=== PATIENT | female | born 1995 | race Caucasian/White ===

== ENCOUNTER 2017-01-13 22:15 | Emergency (ER) | payer BC, OTHER ==
[~2017-01-13] VITALS: Ht 177.8 cm; Wt 63.5 kg
[2017-01-13] MEDS ORDERED: HYDROMORPHONE 1 MG/1 ML DISP.SYRIN IV ONE (22:45)
[2017-01-13] MEDS ORDERED: IV NORMAL SALINE 1000 ML BAG IV ONE (22:45)
[2017-01-13] MEDS ORDERED: ONDANSETRON 4 MG/2 ML VIAL IV ONE (22:45)
[2017-01-13] MEDS ORDERED: HYDROMORPHONE 1 MG/1 ML DISP.SYRIN ONE (22:51)
[2017-01-13] MEDS ORDERED: ONDANSETRON 4 MG/2 ML VIAL ONE (22:52)
[2017-01-13 22:58] LABS: *BILIRUBIN,URIN NEGATIVE (NEGATIVE); *BLOOD, URINE 2+ (NEGATIVE); *CLARITY,URINE CLOUDY (CLEAR); *COLOR,URINE YELLOW (YELLOW); *KETONES,URINE NEGATIVE (NEGATIVE); *UROBILINOGEN,URINE 0.2 E.U./dl (NORMAL); LEUKOCYTE ESTERASE ,URINE 1+ (NEGATIVE); NITRITE, URINE POSITIVE (NEGATIVE); PH,URINE 5.5 (5.0-8.0); UGLUCOSE NEGATIVE (NEGATIVE)
[2017-01-13 23:03] LABS: BASOPHILS # (AUTO) 0.1 K/uL (0.0-8.0); BASOPHILS % (AUTO) 0.7 % (0.0-2.0); EOSINOPHILS # (AUTO) 0.4 K/uL (0.0-0.7); EOSINOPHILS % (AUTO) 4.5 % (0.0-7.0); HEMATOCRIT 39.6 % (37-47); HEMOGLOBIN 13.6 G/DL (12.0-16.0); LYMPHOCYTES # (AUTO) 3.2 K/UL (0.8-4.8); LYMPHOCYTES % (AUTO) 36.8 % (20.5-51.5); MEAN CORPUSCULAR HEMOGLOBIN 31.5 UUG (27.0-31.0); MEAN CORPUSCULAR HGB CONC 34 g/dL (32.0-37.0); MEAN CORPUSCULAR VOLUME 91.9 FL (81.0-99.0); MONOCYTES # (AUTO) 0.6 K/UL (0.1-1.30); MONOCYTES % (AUTO) 6.5 % (0.0-11.0); NEUTROPHILS # (AUTO) 4.3 K/UL (1.8-8.9); NEUTROPHILS % (AUTO) 51.5 % (38.5-71.5); PLATELET COUNT (AUTO) 310 K/UL (150-450); RED BLOOD CELL COUNT(AUTO) 4.31 MIL/UL (4.2-5.4); WHITE BLOOD COUNT (AUTO) 8.6 K/UL (4.0-11.2)
[2017-01-13 23:09] LABS: *PROTEIN,URINE 3+ (NEGATIVE)
[2017-01-13 23:11] LABS: BACTERIA,URINE MANY /HPF (NONE SEEN); BILIRUBIN,DIRECT 0.1 mg/dL (0.0-0.2); BILIRUBIN,TOTAL 0.2 mg/dL (0.2-1.0); CREATININE 0.8 mg/dL (0.6-1.3); POTASSIUM 3.4 mmol/L (3.5-5.1); RBC,URINE 20-50 /HPF (0-3); SQUAMOUS EPITHELIAL CELL,UR MODERATE /HPF (NONE SEEN); TOTAL PROTEIN, SERUM 7.8 g/dL (6.4-8.2); WBC,URINE TNTC /HPF (0-3)
[2017-01-13 23:12] LABS: *URINE HCG, QUAL NEGATIVE (NEGATIVE)
[2017-01-13] MEDS ORDERED: IV NORMAL SALINE 250 ML IV ONE (23:29)
[2017-01-13] MEDS ORDERED: IOHEXOL 300MG/ML 100 ML INFUS..BTL ONE (23:29)
[2017-01-13] MEDS ORDERED: NORMAL SALINE FLUSH 10 ML DISP.SYRIN ONE (23:29)
--- NOTE | 2017-01-13 23:40 | NUR ---
Patient's family at bedside contracticting ERMD's medical opinion and advising patient to refuse tests. ERMD notified, ERMD spoke with family.
--- NOTE | 2017-01-13 23:40 | NUR ---
Patient refuses CT scan
--- NOTE | 2017-01-13 23:41 | NUR ---
Radiology at bedside for US. Patient wishes to refuse any further tests.
[2017-01-13] MEDS ORDERED: NITROFURANTOIN/NITROFURAN MAC 100 MG CAPSULE PO ONE (23:45)
[2017-01-13] MEDS ORDERED: CEFTRIAXONE 1 G in IV DEXTROSE 5% 50 ML IV ONE (23:45)
[2017-01-13] MEDS ORDERED: CEFTRIAXONE 1 G VIAL ONE (23:54)
[2017-01-13] MEDS ORDERED: NITROFURANTOIN/NITROFURAN MAC 100 MG CAPSULE ONE (23:54)
--- NOTE | 2017-01-14 00:30 | NUR ---
Patient comfortable in bed during US examination. Family members refuse to leave the room despite multiple requests due to private nature of [facility] US. ERMD notified.
--- NOTE | 2017-01-14 00:44 | NUR ---
Radiology completed US, preliminary results to ERMD.
--- NOTE | 2017-01-14 00:46 | NUR ---
Patient decided to have the CT scan but states she does not want contrast. ERMD notified.
[2017-01-14] MEDS ORDERED: HYDROMORPHONE 1 MG/1 ML DISP.SYRIN IV ONE (01:00)
[2017-01-14] MEDS ORDERED: HYDROMORPHONE 1 MG/1 ML DISP.SYRIN ONE (01:18)
[2017-01-14] MEDS ORDERED: ONDANSETRON 4 MG/2 ML VIAL ONE (01:28)
[2017-01-14] MEDS ORDERED: ONDANSETRON IV *ER 4 MG/2 ML VIAL IV ONE (01:30)
--- NOTE | 2017-01-14 03:38 | NUR ---
NICK spoke with patient and family and informed them he recommends admission to the hospital due to patient's continuing pain. Patient and family members stated that they wanted to be discharged. When staff discussed AMA option, mother stated "she came in pain and she's leaving in pain." Mother was again informed that NICK recommends admission to the hospital. Patient and mother wish to be discharged.
--- NOTE | 2017-01-14 03:39 | NUR ---
Patient was presented with after care instructions. Patient's mother refused to let the patient see medical documents, demanded that she read every form, and ultimately took the signature page of the after care instructions stating "I'm not signing that." Patient was understanding of instructions and desired to be discharged.
--- NOTE | 2017-01-14 03:40 | NUR ---
Patient does not wish to proceed with medical care recommended by Dr. Dan. Patient given information related to possible complications, up to and including , which could occur as a result of leaving the hospital at this time. Patient verbalizes understanding of risks involved due to leaving against medical advice. Patient and her mother refused to sign AMA form.
== END 2017-01-14 03:51 | disposition left against medical advice (07) ==
LOC: ER 22:15
DX: N12 Tubulo-interstitial nephritis, not specified as acute or chronic (principal)
CPT/HCPCS: 36415; 76856; 84703; 85025; 85730; 87077; 87086; A4663; J0696; J1170; J2405; J3490; J7050; Q9967